=== PATIENT | female | born 1985 | race Caucasian/White ===

== ENCOUNTER 2017-01-26 17:29 | Emergency (ER) | payer OTHER ==
[~2017-01-26] VITALS: Ht 160 cm; Wt 55.1 kg
[~2017-01-26 17:29] MED LIST: Z.0.BCPILL PO
[2017-01-26 17:40] VITALS: BP 149/91; PULSE 79; RESP 16; TEMP 98.9; O2SAT 100
[2017-01-26] MEDS ORDERED: birth control pills (17:57)
[2017-01-26] MEDS ORDERED: SODIUM CHLORIDE 0.9% FLUSH 10 ML FLUSH IV FLUSH PRN (18:30)
[2017-01-26 18:33] VITALS: RESP 16; O2SAT 100
[2017-01-26 18:37] LABS: AUTOMATED NEUTROPHIL # 3.4 TH/MM3 (1.8-7.7); BASOPHIL # 0.1 TH/MM3 (0-0.2); EOSINOPHIL # 0.1 TH/MM3 (0-0.4); EOSINOPHIL % 0.9 % (0.0-4.0); HEMATOCRIT 42.6 % (35.0-46.0); LYMPH % 41.5 % (9.0-44.0); LYMPHOCYTE # 2.9 TH/MM3 (1.0-4.8); MEAN CELL VOLUME 89.4 FL (80.0-100.0); MEAN CORPUSCULAR HEMOGLOBIN 30.1 PG (27.0-34.0); MEAN CORPUSCULAR HGB CONC 33.6 % (32.0-36.0); MONO % 6.5 % (0.0-8.0); NEUT % 50.1 % (16.0-70.0); PLATELET COUNT 230 TH/MM3 (150-450); RED BLOOD COUNT 4.76 MIL/MM3 (4.00-5.30)
[2017-01-26 18:38] LABS: HEMO FLAGS DIFF FINAL
[2017-01-26 18:44] LABS: CHLORIDE 103 MEQ/L (98-107); POTASSIUM 3.2 MEQ/L (3.5-5.1); SODIUM (NA) 137 MEQ/L (136-145)
[2017-01-26 18:48] LABS: BLOOD, URINE NEG (NEG); GLUCOSE,URINE NEG (NEG); KETONE, URINE NEG (NEG); NITRITE,URINE NEG (NEG)
[2017-01-26 18:48] LABS: ANION GAP 7 MEQ/L (5-15); BICARBONATE 27.3 MEQ/L (21.0-32.0); BLOOD UREA NITROGEN 9 MG/DL (7-18)
[2017-01-26 18:51] LABS: ALT (GPT) 23 U/L (10-53); AST (GOT) 17 U/L (15-37); GLOMERULAR FILTRATION RATE 70 ML/MIN (>89)
[2017-01-26 18:53] LABS: TOTAL BILIRUBIN ADULT 0.7 MG/DL (0.2-1.0)
[2017-01-26 18:54] LABS: ALKALINE PHOSPHATASE 45 U/L (45-117)
[2017-01-26 19:00] VITALS: BP 133/88; PULSE 90; RESP 16; O2SAT 100
[2017-01-26 19:14] LABS: URINE COLOR YELLOW (YELLW/STRAW)
[2017-01-26 19:15] LABS: COMMENT (UR) CULT NOT INDICATED; CULTURE IF INDICATED CULT NOT INDICATED; SQUAMOUS EPITHELIAL CELL URINE 0-5 /hpf (0-5)
--- NOTE | 2017-01-26 20:09 | PD ---
HPI Chief Complaint: Abdominal Pain Time Seen by Provider: 17:47 Travel History International Travel<30 days: No Contact w/Intl Traveler<30days: No Traveled to known affect area: No History of Present Illness HPI Patient is a 31-year-old female presents emergency Department with intermittent right upper quadrant pain. Patient states currently she is pain-free. She states earlier today she wanted to go for a ride on her bike but thought pain was too intense and wanted to be checked out prior to going riding on a bike. She states she eats healthy does not eat any fatty food. Cannot the finding any alleviating or exacerbating factors. Patient states the pain is intermittent, mild, cramping in the right upper quadrant. PFSH Past Medical History Medical History: Denies Significant Hx Influenza Vaccination: No ?: Not LMP: 01/05/17 : 0 Past Surgical History Appendectomy: Yes Social History Alcohol Use: No Tobacco Use: No Substance Use: No Allergies-Medications (Allergen,Severity, Reaction): Coded Allergies: hydrocodone (Unverified Allergy, Severe, Hives, 01/26/17) Reported Meds & Prescriptions Reported Meds & Active Scripts Active Prevacid (Lansoprazole) 15 Mg Capdr 15 Mg PO DAILY Reported [ control pills] Review of Systems Except as stated in HPI: all other systems reviewed are Neg Physical Exam Narrative GENERAL: Well-developed well-nourished no obvious distress, thin, healthy build. SKIN: Focused skin assessment warm/dry. HEAD: Atraumatic. Normocephalic. EYES: Pupils equal and round. No scleral icterus. No injection or drainage. ENT: No nasal bleeding or discharge. Mucous membranes pink and moist. NECK: Trachea midline. No JVD. CARDIOVASCULAR: Regular rate and rhythm. No murmur appreciated. RESPIRATORY: No accessory muscle use. Clear to auscultation. Breath sounds equal bilaterally. GASTROINTESTINAL: Abdomen soft, non-tender, nondistended. Hepatic and splenic margins not palpable. Manriquez sign negative, no right lower quadrant tenderness. No rebound no percussive tenderness, CVA tenderness is negative. MUSCULOSKELETAL: No obvious deformities. No clubbing. No cyanosis. No edema. NEUROLOGICAL: Awake and alert. No obvious cranial nerve deficits. Motor grossly within normal limits. Normal speech. PSYCHIATRIC: Appropriate mood and affect; insight and judgment normal. Data Data Last Documented VS Vital Signs Date Time Temp Pulse Resp B/P (MAP) Pulse Ox O2 Delivery O2 Flow Rate FiO2 01/26/17 20:48 88 18 129/82 (98) 100 01/26/17 19:00 Room Air 01/26/17 17:40 98.9 Orders Orders Urinalysis - C+S If Indicated (01/26/17 18:04) Ed Urine Pregnancytest Poc (01/26/17 18:04) Complete Blood Count With Diff (01/26/17 18:18) Comprehensive Metabolic Panel (01/26/17 18:18) Lipase (01/26/17 18:18) Iv Access Insert/Monitor (01/26/17 18:18) Ecg Monitoring (01/26/17 18:18) Oximetry (01/26/17 18:18) Sodium Chloride 0.9% Flush (Ns Flush) (01/26/17 18:30) Al-Mag Hy-Si 40-40-4 Mg/Ml Liq (Mag-Al P (01/26/17 20:45) Lidocaine 2% Viscous (Xylocaine 2% Visco (01/26/17 20:45) Labs Laboratory Tests Test 01/26/17 18:20 01/26/17 18:30 Urine Color YELLOW Urine Turbidity CLEAR Urine pH 7.0 Urine Specific [place] 1.005 Urine Protein NEG mg/dL Urine Glucose (UA) NEG mg/dL Urine Ketones NEG mg/dL Urine Occult Blood NEG Urine Nitrite NEG Urine Bilirubin NEG Urine Leukocyte Esterase NEG Urine Squamous Epithelial Cells 0-5 /hpf Microscopic Urinalysis Comment CULT NOT INDICATED White Blood Count 7.0 TH/MM3 Red Blood Count 4.76 MIL/MM3 Hemoglobin 14.3 GM/DL Hematocrit 42.6 % Mean Corpuscular Volume 89.4 FL Mean Corpuscular Hemoglobin 30.1 PG Mean Corpuscular Hemoglobin Concent 33.6 % Red Cell Distribution Width 12.0 % Platelet Count 230 TH/MM3 Mean Platelet Volume 7.4 FL Neutrophils (%) (Auto) 50.1 % Lymphocytes (%) (Auto) 41.5 % Monocytes (%) (Auto) 6.5 % Eosinophils (%) (Auto) 0.9 % Basophils (%) (Auto) 1.0 % Neutrophils # (Auto) 3.4 TH/MM3 Lymphocytes # (Auto) 2.9 TH/MM3 Monocytes # (Auto) 0.5 TH/MM3 Eosinophils # (Auto) 0.1 TH/MM3 Basophils # (Auto) 0.1 TH/MM3 CBC Comment DIFF FINAL Differential Comment Blood Urea Nitrogen 9 MG/DL Creatinine 0.95 MG/DL Random Glucose 82 MG/DL Total Protein 7.9 GM/DL Albumin 3.9 GM/DL Calcium Level 8.8 MG/DL Alkaline Phosphatase 45 U/L Aspartate Amino Transf (AST/SGOT) 17 U/L Alanine Aminotransferase (ALT/SGPT) 23 U/L Total Bilirubin 0.7 MG/DL Sodium Level 137 MEQ/L Potassium Level 3.2 MEQ/L Chloride Level 103 MEQ/L Carbon Dioxide Level 27.3 MEQ/L Anion Gap 7 MEQ/L Estimat Glomerular Filtration Rate 70 ML/MIN Lipase 126 U/L MDM Medical Decision Making Medical Screen Exam Complete: Yes Emergency Medical Condition: Yes Differential Diagnosis Abdominal pain, screws pain, stomach pain, cholecystitis and likely, pancreatitis unlikely. Narrative Course Patient 31-year-old female, healthy and athletic type. Nonspecific right upper quadrant pain by description, physical exam is reassuring. Basic labs reassuring. No indication for advanced imaging at this time. She is pain-free in the emergency department but states that just prior to discharge her pain was coming back a little bit, she was reexamined and her abdomen remains benign. Discussed need follow-up the earth science professor discussed return to ED criteria. I see no indication for advanced imaging at this time. Diagnosis Primary Impression: RUQ abdominal pain Referrals: Manoj Arriaza MD Med/Other Pt SpecificInfo: Prescription(s) given Scripts Lansoprazole (Prevacid) 15 Mg Capdr 15 MG PO DAILY, #30 CAP 0 Refills Prov: William Rosenberg MD 01/26/17 Disposition: 01 DISCHARGE HOME Condition: Stable William Rosenberg MD Jan 26, 2017 20:09
[2017-01-26] MEDS ORDERED: PREV15CA15 PO (20:37)
[2017-01-26] MEDS ORDERED: ALUMINUM/MAGNESIUM/SIMETH 30 ML CUP PO ONE (20:45)
[2017-01-26] MEDS ORDERED: LIDOCAINE VISCOUS 2% SOLN 15 ML UDC PO ONE (20:45)
[2017-01-26 20:48] VITALS: BP 129/82
== END 2017-01-26 21:01 | disposition home or self-care (01) ==
LOC: PHED 17:29
DX: R10.11 Right upper quadrant pain (principal)
CPT/HCPCS: 80053; 81001; 83690; 84703; 85025; 99283